=== PATIENT | female | born 1985 | race African-American/Black ===

== ENCOUNTER 2016-10-02 20:56 | Emergency (ER) | payer OTHER ==
[~2016-10-02] VITALS: Ht 165.1 cm; Wt 124.3 kg
[~2016-10-02 20:56] MED LIST: LABE100T3 PO
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
[2016-10-02] MEDS ORDERED: ORPHENADRINE CITRATE 60 MG/2 ML VIAL. IM ONE (21:45)
[2016-10-02 22:07] LABS: BILIRUBIN,URINE NEGATIVE (NEG); GLUCOSE,URINE NEGATIVE (NEG); NEG OBC UR NEG; NITRITE,URINE NEGATIVE (NEG); PH,URINE 6.5; POS OBC UR POS; PROTEIN,URINE NEGATIVE (NEG-TRACE)
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
[2016-10-02] MEDS ORDERED: CYCL10TA2 PO (22:27)
[2016-10-02] MEDS ORDERED: IBUP-1007 PO (22:27)
[2016-10-02 22:45] VITALS: BP 121/68
[2016-10-02] MEDS ORDERED: IBUPROFEN 600 MG TABLET. PO ONE (22:45)
[2016-10-02] MEDS ORDERED: CYCLOBENZAPRINE 10 MG TABLET. PO ONE (22:45)
== END 2016-10-02 22:49 | disposition home or self-care (01) ==
LOC: ER 20:56
DX: S01.81XA Laceration without foreign body of other part of head, initial encounter (principal); S09.90XA Unspecified injury of head, initial encounter; M54.2 Cervicalgia; Z91.041 Radiographic dye allergy status; Z88.5 Allergy status to narcotic agent; V49.50XA Passenger injured in collision with unspecified motor vehicles in traffic accident, initial encounter; Y93.89 Activity, other specified; Y92.410 Unspecified street and highway as the place of occurrence of the external cause; Y99.8 Other external cause status
CPT/HCPCS: 70450; 72125; 81003; 81025; 99285-25

== ENCOUNTER 2016-11-04 15:59 | Emergency (ER) | payer OTHER ==
[~2016-11-04] VITALS: Ht 165.1 cm; Wt 93.9 kg
[~2016-11-04 15:59] MED LIST changes: +CYCL10TA2 PO; +IBUP-1007 PO
[2016-11-04 16:03] VITALS: BP 124/82
[2016-11-04] MEDS ORDERED: TRAM-29 PO (16:31)
[2016-11-04] MEDS ORDERED: PENI500T PO (16:31)
--- NOTE | 2016-11-04 16:31 | PHYS DOC ---
Past Medical History Past Medical History: Hypertension Past Surgical History: Tubal ligation Additional Information: Nonsmoker Alcohol Use: None Drug Use: None Adult General Chief Complaint Chief Complaint: Toothache HPI HPI Patient is a 31 year old female who presents with left mandibular dental pain starting last night. She has a tooth that was previously broken but broke further last night. She denies any fevers. There is mild swelling. She does not have a dentist but sees Dr. Robert Stanley for primary care. Review of Systems Review of Systems Constitutional: Denies fever or chills. [] Eyes: Denies change in visual acuity, redness, or eye pain. [] HENT: Denies ear pain, nasal congestion or sore throat. Reports dental pain. Integument: Denies rash or skin lesions. [] Neurologic: Denies headache, focal weakness or sensory changes. [] Allergies Allergies Allergies Coded Allergies Type Severity Reaction Last Updated Verified Iodinated Contrast Media - IV Dye Allergy Intermediate 12/07/15 Yes oxycodone Allergy Intermediate 12/07/15 Yes Physical Exam Physical Exam Constitutional: Well developed, well nourished, no acute distress, non-toxic appearance. [] HENT: Normocephalic, atraumatic, bilateral external ears normal, oropharynx moist, no oral exudates, nose normal. Bilateral TMs without erythema or bulging. There is no posterior pharyngeal erythema or tonsillar edema. Tooth # 20 is carious, broken, and tender with minimal gingival edema surrounding. There is no dental abscess. Eyes: PERRLA, EOMI, conjunctiva normal, no discharge. [] Neck: Normal range of motion, no tenderness, supple, no stridor. [] Skin: Warm, dry, no erythema, no rash. [] Neurologic: Alert and oriented X 3, normal motor function, normal sensory function, no focal deficits noted. [] Psychologic: Affect normal, judgement normal, mood normal. [] Current Patient Data Vital Signs Vital Signs Date Time Temp Pulse Resp B/P Pulse Ox O2 Delivery O2 Flow Rate FiO2 11/04/16 16:03 98.1 73 16 99 Room Air 98.1 EKG EKG [] Radiology/Procedures Radiology/Procedures [] Course & Med Decision Making Course & Med Decision Making Pertinent Labs and Imaging studies reviewed. (See chart for details) [] Dragon Disclaimer Dragon Disclaimer This electronic medical record was generated, in whole or in part, using a voice recognition dictation system. Departure Departure Impression: Primary Impression: Dentalgia Disposition: 01 HOME, SELF-CARE Condition: STABLE Referrals: ROBERT STANLEY (PCP) Patient Instructions: Dental Pain, [id number] Additional Instructions: Please complete all the prescribed antibiotics, even if your tooth is feeling better. Please take the prescribed pain medication as directed. Do not drive or operate heavy machinery while taking pain medication. Please follow-up with the dentist of your choice as soon as possible to have your tooth pulled. Return to emergency department if you have any new or concerning symptoms. Scripts Tramadol Hcl (Ultram)50 Mg [id number] Mg PO Q6H PRN PAIN #20 TAB Prov:NURYS OROZCO 11/04/16 Penicillin V Potassium 500 Mg Tablet1 Tab PO TID #30 TAB Prov:NURYS OROZCO 11/04/16 NURYS OROZCO Nov 04, 2016 16:31
== END 2016-11-04 16:38 | disposition home or self-care (01) ==
LOC: ER 15:59
DX: K02.9 Dental caries, unspecified (principal); I10 Essential (primary) hypertension; Z88.5 Allergy status to narcotic agent; Z91.041 Radiographic dye allergy status
CPT/HCPCS: 99283

== ENCOUNTER 2017-05-25 18:45 | Emergency (ER) | payer OTHER ==
[~2017-05-25] VITALS: Ht 165.1 cm; Wt 110.2 kg
[~2017-05-25 18:45] MED LIST changes: +PENI500T PO; +TRAM-48 PO
[2017-05-25 18:55] VITALS: BP 131/77
--- NOTE | 2017-05-25 19:03 | PHYS DOC ---
Past Medical History Past Medical History: Hypertension Past Surgical History: Tubal ligation Alcohol Use: None Drug Use: None Adult General Chief Complaint Chief Complaint: DENTAL PROBLEM HPI HPI Patient is a 31 year old female presents to the emergency department with complaints of left lower dental pain. She had a tooth extracted 3 days ago. She was prescribed hydrocodone but she is afraid to take it because she has good work. She reports no fever no difficulty with swallowing or phonation. Review of Systems Review of Systems Constitutional: Denies fever or chills [] Eyes: Denies change in visual acuity, redness, or eye pain [] HENT: Dental pain Respiratory: Denies cough or shortness of breath [] Cardiovascular: No additional information not addressed in HPI [] GI: Denies abdominal pain, nausea, vomiting, bloody stools or diarrhea [] : Denies dysuria or hematuria [] Musculoskeletal: Denies back pain or joint pain [] Integument: Denies rash or skin lesions [] Neurologic: Denies headache, focal weakness or sensory changes [] Endocrine: Denies polyuria or polydipsia [] Allergies Allergies Allergies Coded Allergies Type Severity Reaction Last Updated Verified Iodinated Contrast Media - IV Dye Allergy Intermediate 12/07/15 Yes oxycodone Allergy Intermediate 12/07/15 Yes Physical Exam Physical Exam Constitutional: Well developed, well nourished, no acute distress, non-toxic appearance. [] HENT: Normocephalic, atraumatic, bilateral external ears normal, oropharynx moist, no oral exudates, nose normal. Gingiva with evidence of recent extraction at #21, no swelling, no erythema. Facial swelling. [] Eyes: PERRLA, EOMI, conjunctiva normal, no discharge. [] Neck: Normal range of motion, no tenderness, supple, no stridor. [] Cardiovascular:Heart rate regular rhythm, no murmur [] Lungs & Thorax: Bilateral breath sounds clear to auscultation [] Abdomen: Bowel sounds normal, soft, no tenderness, no masses, no pulsatile masses. [] Skin: Warm, dry, no erythema, no rash. [] Neurologic: Alert and oriented X 3, normal motor function, normal sensory function, no focal deficits noted. [] Psychologic: Affect normal, judgement normal, mood normal. [] EKG EKG [] Radiology/Procedures Radiology/Procedures [] Course & Med Decision Making Course & Med Decision Making Pertinent Labs and Imaging studies reviewed. (See chart for details) []She'll be provided with a work note so that she may comfortably use her medications as directed by the dentist. Cecilia Disclaimer Aleksandraon Disclaimer This electronic medical record was generated, in whole or in part, using a voice recognition dictation system. Departure Departure Impression: Primary Impression: Odontalgia Disposition: HOME, SELF-CARE Condition: STABLE Referrals: MACRINA STANLEY (PCP) Patient Instructions: Dental Pain Additional Instructions: Continue medications as directed by the dentist. Please follow-up with your dentist tomorrow. ILEANA LÓPEZ GROUP THERAPIST May 25, 2017 19:03
== END 2017-05-25 19:10 | disposition home or self-care (01) ==
LOC: ER 18:45
DX: K08.89 Other specified disorders of teeth and supporting structures (principal); I10 Essential (primary) hypertension; Z88.5 Allergy status to narcotic agent; Z91.041 Radiographic dye allergy status
CPT/HCPCS: 99281

== ENCOUNTER 2017-10-08 14:18 | Emergency (ER) | payer OTHER | END 2017-10-08 15:16 | disposition home or self-care (01) | LOC: ER 14:18 | DX: M43.6 Torticollis (principal); I10 Essential (primary) hypertension; Z88.5 Allergy status to narcotic agent; Z91.041 Radiographic dye allergy status | CPT/HCPCS: 99283 ==

== ENCOUNTER 2018-11-30 20:43 | Emergency (ER) | payer SELFPAY ==
[~2018-11-30] VITALS: Ht 165.1 cm; Wt 108.9 kg
[~2018-11-30 20:43] MED LIST changes: -LABE100T3 PO; +LABE100T5 PO; +METH4TAB2 PO; +NAPR500T8 PO
[2018-11-30 23:25] VITALS: BP 125/72
[2018-12-01] MEDS ORDERED: IBUPROFEN 400 MG TABLET. PO ONE (00:30)
[2018-12-01] MEDS ORDERED: CYCLOBENZAPRINE 10 MG TABLET. PO ONE (00:30)
[2018-12-01] MEDS ORDERED: CYCL5TAB PO (00:56)
--- NOTE | 2018-12-01 01:16 | RAD ---
INDICATION: Left leg pain COMPARISON: None. TECHNIQUE: Grayscale, color and doppler ultrasound images were obtained of the left lower extremity venous vasculature. LEFT: No thrombus identified in the common femoral vein, femoral vein, popliteal vein or visualized calf veins. IMPRESSION: 1. No thrombus identified in deep venous system of the left lower extremity. 2. Within the left anterior aspect of the foot subcutaneous soft tissues there is a hypoechoic oval-shaped masslike structure identified measuring approximately 18 x 5 mm which appears partially compressible. This is of unknown etiology with a small soft tissue mass or lymph node within the differential. If more complete characterization is desired nonemergent MRI could further evaluate. This has a more focal appearance than would be typically seen with causes such as a thrombus within a superficial dilated vein. Electronically signed by: Edwin Patton MD (12/01/2018 1:13 AM) [facility]
--- NOTE | 2018-12-01 05:18 | PHYS DOC ---
Past Medical History Past Medical History: Hypertension Past Surgical History: Tubal ligation Alcohol Use: Occasionally Drug Use: None Adult General Chief Complaint Chief Complaint: LOWER EXT PAIN HPI HPI Patient is a 33 year old f p./w left leg cramp, has had this on and off for a month mostly in the hamstring area she says that might have started from lifting heavy boxes at work. No back pain no bowel or bladder incontinence tonight the pain was worse it is cramping every time she tries to move her hamstring thigh area so she came to the emergency room for evaluation Review of Systems Review of Systems Constitutional: Denies fever or chills [] Eyes: Denies change in visual acuity, redness, or eye pain [] HENT: Denies nasal congestion or sore throat [] Respiratory: Denies cough or shortness of breath [] Cardiovascular: No additional information not addressed in HPI [] GI: Denies abdominal pain, nausea, vomiting, bloody stools or diarrhea [] : Denies dysuria or hematuria [] Musculoskeletal: Denies back pain or joint pain [] Integument: Denies rash or skin lesions [] Neurologic: Denies headache, focal weakness or sensory changes [] Endocrine: Denies polyuria or polydipsia [] All other systems were reviewed and found to be within normal limits, except as documented in this note. Current Medications Current Medications Current Medications Medications (Trade) Dose Ordered Sig/Yemi Start Time Stop Time Status Last Admin Dose Admin Cyclobenzaprine HCl (Flexeril) 10 mg 1X ONCE 12/01/18 00:30 12/01/18 00:31 DC 12/01/18 01:28 10 MG Ibuprofen (Motrin) 400 mg 1X ONCE 12/01/18 00:30 12/01/18 00:31 DC 12/01/18 01:27 400 MG Allergies Allergies Allergies Coded Allergies Type Severity Reaction Last Updated Verified Iodinated Contrast- Oral and IV Dye Allergy Intermediate 12/07/15 Yes oxycodone Allergy Intermediate 12/07/15 Yes Physical Exam Physical Exam Constitutional: Well developed, well nourished, no acute distress, non-toxic appearance. [] HENT: Normocephalic, atraumatic, bilateral external ears normal, oropharynx moist, no oral exudates, nose normal. [] Eyes: PERRLA, EOMI, conjunctiva normal, no discharge. [] Neck: Normal range of motion, no tenderness, supple, no stridor. [] Pulmonary: Normal respiratory effort no increased work of breathing no obvious chest wall trauma Abdomen: Bowel sounds normal, soft, no tenderness, no masses, no pulsatile masses. [] Skin: Warm, dry, no erythema, no rash. [] Back: No tenderness, no CVA tenderness. [] Extremities: Pedal pulses intact no signs of erythema or induration. No obvious palpable mass was identified on clinical examination mild to moderate tenderness in the popliteal region was noted there is also tenderness around the left hamstring muscle no masses identified. Neurologic: Alert and oriented X 3, normal motor function, normal sensory function, no focal deficits noted. [] Psychologic: Affect normal, judgement normal, mood normal. [] Current Patient Data Vital Signs Vital Signs Date Time Temp Pulse Resp B/P (MAP) Pulse Ox O2 Delivery O2 Flow Rate FiO2 11/30/18 23:25 97.7 73 16 125/72 (89) 98 Room Air 97.7 EKG EKG [] Radiology/Procedures Radiology/Procedures [] Impressions: No thrombus identified in the common femoral vein, femoral vein, popliteal vein or visualized calf veins. IMPRESSION: 1. No thrombus identified in deep venous system of the left lower extremity. 2. Within the left anterior aspect of the foot subcutaneous soft tissues there is a hypoechoic oval-shaped masslike structure identified measuring approximately 18 x 5 mm which appears partially compressible. This is of unknown etiology with a small soft tissue mass or lymph node within the differential. If more complete characterization is desired nonemergent MRI could further evaluate. This has a more focal appearance than would be typically seen with causes such as a thrombus within a superficial dilated vein. Electronically signed by: Eleni Patton MD (12/01/2018 1:13 AM) [facility] DICTATED and SIGNED BY: ELENI PATTON MD DATE: 12/01/18 0113 Course & Med Decision Making Course & Med Decision Making Pertinent Labs and Imaging studies reviewed. (See chart for details) []Normal ultrasound finding and checked the foot there are no signs of cellulitis. Negative for DVT I suspect given the clinical history is mostly just muscle cramping/spasm in the hamstring area recommended muscle relaxant follow-up as needed use ice and rest gradual return to activity Dragon Disclaimer Dragon Disclaimer This electronic medical record was generated, in whole or in part, using a voice recognition dictation system. Departure Departure Impression: Primary Impression: Muscle cramp Disposition: HOME, SELF-CARE Condition: STABLE Patient Instructions: Muscle Cramps Scripts Cyclobenzaprine Hcl (CYCLOBENZAPRINE HCL) 5 Mg Tablet 5 MG PO PRN TID PRN for MUSCLE SPASMS, #15 TAB Prov: BURAK ARREDONDO MD 12/01/18 BURAK ARREDONDO MD Dec 01, 2018 05:18
== END 2018-12-01 01:28 | disposition home or self-care (01) ==
LOC: ER 20:43
DX: R25.2 Cramp and spasm (principal); M79.605 Pain in left leg; I10 Essential (primary) hypertension; Z88.5 Allergy status to narcotic agent; Z91.041 Radiographic dye allergy status
CPT/HCPCS: 93971; 99284-25

== ENCOUNTER 2019-08-27 18:30 | Emergency (ER) | payer MEDICAID ==
[~2019-08-27] VITALS: Ht 165.1 cm; Wt 104.3 kg
[~2019-08-27 18:30] MED LIST changes: +CYCL5TAB PO
[2019-08-27] MEDS ORDERED: ONDANSETRON PF 4 MG/2 ML VIAL. IV ONE (19:00)
--- NOTE | 2019-08-27 19:01 | PHYS DOC ---
Past Medical History Past Medical History: Hypertension Past Surgical History: Tubal ligation Alcohol Use: Occasionally Drug Use: None Adult General Chief Complaint Chief Complaint: SYNCOPE HPI HPI 34-year-old female underlying history of hypertension presents to the emergency department with complaints of a headache. Patient states the headache started around 7 AM. She states she did not take any medications for this this morning. She describes a headache as pounding. She states she did have some muscle tension in her shoulders as well. Describes nausea, vomiting. Denies any fever. She states nothing makes her pain worse, nothing makes her pain better. She also describes a syncopal episode as she was getting off the toilet. Unknown exactly downtime. She denies any bowel or bladder dysfunction. Review of Systems Review of Systems Constitutional: Denies fever or chills [] Eyes: Denies change in visual acuity, redness, or eye pain [] HENT: Denies nasal congestion or sore throat [] Respiratory: Denies cough or shortness of breath [] Cardiovascular: No additional information not addressed in HPI [] GI: Denies abdominal pain,+ nausea, vomiting, no bloody stools or diarrhea [] : Denies dysuria or hematuria [] Musculoskeletal: Denies back pain or joint pain [] Neurologic: + headache, no focal weakness or sensory changes [] All other systems were reviewed and found to be within normal limits, except as documented in this note. Current Medications Current Medications Current Medications Medications (Trade) Dose Ordered Sig/Yemi Start Time Stop Time Status Last Admin Dose Admin Diphenhydramine HCl (Benadryl) 50 mg 1X ONCE 08/27/19 20:15 08/27/19 20:16 DC 08/27/19 20:17 50 MG Metoclopramide HCl (Reglan Vial) 10 mg 1X ONCE 08/27/19 20:15 08/27/19 20:16 DC 08/27/19 20:17 10 MG Ondansetron HCl (Zofran) 4 mg 1X ONCE 08/27/19 19:00 08/27/19 19:01 DC 08/27/19 19:27 4 MG Allergies Allergies Allergies Coded Allergies Type Severity Reaction Last Updated Verified Iodinated Contrast- Oral and IV Dye Allergy Intermediate 12/07/15 Yes oxycodone Allergy Intermediate 12/07/15 Yes Physical Exam Physical Exam Constitutional: Well developed, well nourished, pain 2/2 headache, non-toxic appearance. [] HENT: Normocephalic, atraumatic, bilateral external ears normal, oropharynx moist, no oral exudates, nose normal. [] Eyes: PERRLA, EOMI, conjunctiva normal, no discharge. [] Neck: Normal range of motion, no tenderness, supple, no stridor. [] Cardiovascular:Heart rate regular rhythm, no murmur [] Lungs & Thorax: Bilateral breath sounds clear to auscultation [] Abdomen: Bowel sounds normal, soft, no tenderness, no masses, no pulsatile masses. [] Skin: Warm, dry, no erythema, no rash. [] Back: No tenderness, no CVA tenderness. [] Extremities: No tenderness, no edema. [] Neurologic: Alert and oriented X 3,no focal deficits noted. [] Psychologic: Affect normal, judgement normal, mood normal. [] Current Patient Data Vital Signs Vital Signs Date Time Temp Pulse Resp B/P (MAP) Pulse Ox O2 Delivery O2 Flow Rate FiO2 08/27/19 19:06 98.6 58 14 161/100 (120) 100 Room Air 98.6 Lab Values Laboratory Tests Test 08/27/19 18:57 08/27/19 19:29 POC Urine HCG, Qualitative Hcg negative (Negative) White Blood Count 9.7 x10^3/uL (4.0-11.0) Red Blood Count 4.41 x10^6/uL (3.50-5.40) Hemoglobin 13.6 g/dL (12.0-15.5) Hematocrit 41.3 % (36.0-47.0) Mean Corpuscular Volume 94 fL (79-100) Mean Corpuscular Hemoglobin 31 pg (25-35) Mean Corpuscular Hemoglobin Concent 33 g/dL (31-37) Red Cell Distribution Width 14.3 % (11.5-14.5) Platelet Count 213 x10^3/uL (140-400) Neutrophils (%) (Auto) 61 % (31-73) Lymphocytes (%) (Auto) 31 % (24-48) Monocytes (%) (Auto) 6 % (0-9) Eosinophils (%) (Auto) 2 % (0-3) Basophils (%) (Auto) 1 % (0-3) Neutrophils # (Auto) 6.0 x10^3/uL (1.8-7.7) Lymphocytes # (Auto) 3.0 x10^3/uL (1.0-4.8) Monocytes # (Auto) 0.6 x10^3/uL (0.0-1.1) Eosinophils # (Auto) 0.1 x10^3/uL (0.0-0.7) Basophils # (Auto) 0.1 x10^3/uL (0.0-0.2) Sodium Level 143 mmol/L (136-145) Potassium Level 3.5 mmol/L (3.5-5.1) Chloride Level 105 mmol/L (98-107) Carbon Dioxide Level 29 mmol/L (21-32) Anion Gap 9 (6-14) Blood Urea Nitrogen 7 mg/dL (7-20) Creatinine 0.8 mg/dL (0.6-1.0) Estimated GFR (Cockcroft-Gault) 99.4 BUN/Creatinine Ratio 9 (6-20) Glucose Level 99 mg/dL (70-99) Calcium Level 8.9 mg/dL (8.5-10.1) Magnesium Level 1.9 mg/dL (1.8-2.4) Total Bilirubin 0.3 mg/dL (0.2-1.0) Aspartate Amino Transferase (AST) 12 U/L (15-37) L Alanine Aminotransferase (ALT) 18 U/L (14-59) Alkaline Phosphatase 75 U/L (46-116) Troponin I Quantitative < 0.017 ng/mL (0.000-0.055) Total Protein 7.6 g/dL (6.4-8.2) Albumin 3.9 g/dL (3.4-5.0) Albumin/Globulin Ratio 1.1 (1.0-1.7) Laboratory Tests 08/27/19 19:29 Laboratory Tests 08/27/19 19:29 EKG EKG [] Radiology/Procedures Radiology/Procedures [facility] [address] [place] [address] IMAGING REPORT Signed PATIENT: MARICRUZ RÍOS DACCOUNT: [id number] : 1985 LOCATION: ER AGE: 34 SEX: F EXAM STATUS: PRE ER ORD. PHYSICIAN: LEOLA RANDLE MD REASON: syncope, headache PROCEDURE: CT HEAD WO CONTRAST Examination: CT HEAD WO CONTRAST History: Syncope, headache Comparison/Correlation: 10/02/2016 CT head and cervical spine without contrast Findings: Axial images of the head were obtained without contrast. Ventricles are normal size. No intracranial hemorrhage, midline shift, or mass effect. Bony structures are unremarkable. Patchy opacification of paranasal sinuses noted. Impression: No suspicious process. PQRS Compliance Statement: One or more of the following individualized dose reduction techniques were utilized for this examination: 1. Automated exposure control 2. Adjustment of the mA and/or kV according to patient size 3. Use of iterative reconstruction technique Electronically signed by: Eliud Gabriel MD (08/27/2019 8:03 PM) [facility] DICTATED and SIGNED BY: ELIUD GABRIEL MD DATE: 08/27/192002 [] Course & Med Decision Making Course & Med Decision Making Pertinent Labs and Imaging studies reviewed. (See chart for details) []34-year-old female underlying history of hypertension presents to the emergency department with complaints of a headache. Patient states the headache started around 7 AM. She states she did not take any medications for this this morning. She describes a headache as pounding. She states she did have some muscle tension in her shoulders as well. Describes nausea, vomiting. Denies any fever. She states nothing makes her pain worse, nothing makes her pain better. She also describes a syncopal episode as she was getting off the toilet. Unknown exactly downtime. She denies any bowel or bladder dysfunction. Labs reviewed CT head negative Patient provided with IV reglan, benadryl and toradol Reassessment of patient 2054 with headache improved Plan dc home with follow up as outpatient with PCP Return precautions provided Cecilia Disclaimer Dragon Disclaimer This electronic medical record was generated, in whole or in part, using a voice recognition dictation system. Departure Departure Impression: Primary Impression: Headache Additional Impression: Vasovagal episode Disposition: HOME, SELF-CARE Condition: IMPROVED Referrals: MACRINA STANLEY (PCP) Patient Instructions: General Headache Without Cause, [id number], Syncope, [id number] Additional Instructions: Recommend follow up with PCP 3 - 5 days Return to the ER with worsening symptoms, intractable pain, fever, altered mental status Tylenol/Motrin as needed for pain CT head negative without acute process Labs reviewed and negative Problem Qualifiers Primary Impression: Headache Headache type: unspecified Headache chronicity pattern: acute headache Intractability: intractable Qualified Codes: R51 - Headache LEOLA RANDLE MD Aug 27, 2019 19:01
[2019-08-27 19:36] LABS: BASO # 0.1 x10^3/uL (0.0-0.2); BASO % 1 % (0-3); EOS # 0.1 x10^3/uL (0.0-0.7); EOS % 2 % (0-3); HEMATOCRIT 41.3 % (36.0-47.0); HEMOGLOBIN 13.6 g/dL (12.0-15.5); LYMPH % 31 % (24-48); MEAN CORPUSCULAR HEMOGLOBIN 31 pg (25-35); MEAN CORPUSCULAR HGB CONC 33 g/dL (31-37); MEAN CORPUSCULAR VOLUME 94 fL (79-100); MONO # 0.6 x10^3/uL (0.0-1.1); MONO % 6 % (0-9); NEUT % 61 % (31-73); PLATELET COUNT 213 x10^3/uL (140-400); RED BLOOD COUNT 4.41 x10^6/uL (3.50-5.40); RED CELL DISTRIBUTION WIDTH 14.3 % (11.5-14.5); WHITE BLOOD COUNT 9.7 x10^3/uL (4.0-11.0)
[2019-08-27 19:54] LABS: CALCIUM 8.9 mg/dL (8.5-10.1); CREATININE 0.8 mg/dL (0.6-1.0); GFR 99.4; POTASSIUM 3.5 mmol/L (3.5-5.1)
[2019-08-27 19:58] LABS: ALBUMIN 3.9 g/dL (3.4-5.0); ALBUMIN/GLOBULIN RATIO 1.1 (1.0-1.7); MAGNESIUM 1.9 mg/dL (1.8-2.4); TOTAL BILIRUBIN 0.3 mg/dL (0.2-1.0); TOTAL PROTEIN 7.6 g/dL (6.4-8.2)
--- NOTE | 2019-08-27 20:06 | RAD ---
Examination: CT HEAD WO CONTRAST History: Syncope, headache Comparison/Correlation: 10/02/2016 CT head and cervical spine without contrast Findings: Axial images of the head were obtained without contrast. Ventricles are normal size. No intracranial hemorrhage, midline shift, or mass effect. Bony structures are unremarkable. Patchy opacification of paranasal sinuses noted. Impression: No suspicious process. PQRS Compliance Statement: One or more of the following individualized dose reduction techniques were utilized for this examination: 1. Automated exposure control 2. Adjustment of the mA and/or kV according to patient size 3. Use of iterative reconstruction technique Electronically signed by: Eliud Chi MD (08/27/2019 8:03 PM) [facility]
[2019-08-27] MEDS ORDERED: METOCLOPRAMIDE HCL 10 MG/2 ML VIAL. IVP ONE (20:15)
[2019-08-27] MEDS ORDERED: diphenhydrAMINE 50 MG/ML VIAL IVP ONE (20:15)
[2019-08-27 21:00] VITALS: BP 98/64
--- NOTE | 2019-08-27 22:11 | RAD ---
Study: PORTABLE CHEST 1V Indication: Syncope. Comparison: 12/05/2015 Findings: Unremarkable cardiomediastinal silhouette and tom. No pneumothorax, lobar infiltrate or pleural effusion. Impression: Unremarkable appearance of the chest. Electronically signed by: TSEVIE ELMORE MD (08/27/2019 10:09 PM) [facility]
--- NOTE | 2019-08-28 10:11 | EKG ---
[facility] [address] [place] [address] Test Date: 2019-08-27 Test Time: 19:05:27 Pat Name: MARICRUZ RÍOS Department: Room: Gender: [employer]: : 1985 Requested By: LEOLA RANDLE Order Number: [id number] Reading MD: Measurements Intervals Delia Rate: 53 P: 54 LA: 146 QRS: 3 QRSD: 88 T: -1 QT: 458 QTc: 436 Interpretive Statements SINUS RHYTHM NON SPECIFIC T ABNORMALITY BORDERLINE ECG No previous ECG available for comparison
== END 2019-08-27 22:09 | disposition home or self-care (01) ==
LOC: ER 18:30
DX: R51 Headache (principal); R55 Syncope and collapse; I10 Essential (primary) hypertension; Z98.51 Tubal ligation status; Z88.5 Allergy status to narcotic agent; Z91.041 Radiographic dye allergy status
CPT/HCPCS: 36415; 70450; 71045; 80053; 81025; 83735; 84484; 85025; 93005; 96374; 96375; 99285; J1200; J2405; J2765

== ENCOUNTER 2020-07-29 21:17 | Emergency (ER) | payer MEDICAID ==
[~2020-07-29] VITALS: Ht 165.1 cm; Wt 104.5 kg
[2020-07-29] MEDS ORDERED: IV NORMAL SALINE 1000ML BAG 1,000 ML IV ONE (21:30)
--- NOTE | 2020-07-29 21:44 | PHYS DOC ---
Past Medical History Past Medical History: Hypertension Past Surgical History: Tubal ligation Smoking Status: Current Every Day Smoker Alcohol Use: Occasionally Drug Use: None General Adult EDM: Chief Complaint: HEADACHE HPI: HPI: History obtained from patient. Patient is a 35-year-old female with a history of migraines who presents with complaint headache. States the headache began gradually 8 hours prior to arrival. States it worsened 2 hours ago. She notes is located the front of her head and is aching in nature. Denies any physical activity or exertion when the headache began. Does note mild photophobia. Notes one episode of vomiting. Denies any neck pain or fever. Denies any acute vision or hearing changes. States this feels similar to previous headaches that she has had in the past. She notes that she was prescribed headache medication a month ago by her primary care physician. States she ran out of the medication 2 weeks ago. Is never seen a neurologist. States she has had advanced head imaging that was negative. She does not know the name of the medication she was prescribed. Patient denies acute onset of headache reaching maximal intensity in under one hour. This is neither the worst headache that Patient has ever experienced, nor was the onset timed with exertional activity or trauma. Patient has not experienced any fever, unusual neck pain or stiffness, syncope, or near syncope. Patient denies numbness, tingling, or weakness of the extremities. Patient also denies personal history of intracranial hemorrhage (including SAH), aneurysm, or AV malformation. Review of Systems: Review of Systems: Constitutional: Denies fever or chills. [] Eyes: Denies change in visual acuity. [] HENT: Denies nasal congestion or sore throat. [] Respiratory: Denies cough or shortness of breath. [] Cardiovascular: Denies chest pain or edema. [] GI: Denies abdominal pain, nausea, vomiting, bloody stools or diarrhea. [] : Denies dysuria. [] Musculoskeletal: Denies back pain or joint pain. [] Integument: Denies rash. [] Neurologic: Positive for headache Endocrine: Denies polyuria or polydipsia. [] Lymphatic: Denies swollen glands. [] Psychiatric: Denies depression or anxiety. [] Heart Score: Risk Factors: Risk Factors: DM, Current or recent (<one month) smoker, HTN, HLP, family history of CAD, obesity. Risk Scores: Score 0 - 3: 2.5% MACE over next 6 weeks - Discharge Home Score 4 - 6: 20.3% MACE over next 6 weeks - Admit for Clinical Observation Score 7 - 10: 72.7% MACE over next 6 weeks - Early Invasive Strategies Current Medications: Current Medications Medications (Trade) Dose Ordered Sig/Yemi Start Time Stop Time Status Last Admin Dose Admin Diphenhydramine HCl (Benadryl) 50 mg 1X ONCE 07/29/20 21:45 07/29/20 21:46 Metoclopramide HCl (Reglan Vial) 10 mg 1X ONCE 07/29/20 21:45 07/29/20 21:46 Sodium Chloride 1,000 ml @ 1,000 mls/hr 1X ONCE 07/29/20 21:30 07/29/20 22:29 Allergies: Allergies: Allergies Coded Allergies Type Severity Reaction Last Updated Verified Iodinated Contrast Media Allergy Intermediate 12/07/15 Yes oxycodone Allergy Intermediate 12/07/15 Yes Physical Exam: PE: Constitutional: Well developed, well nourished, no acute distress, non-toxic appearance. [] HENT: Normocephalic, atraumatic, bilateral external ears normal, oropharynx moist, no oral exudates, nose normal. [] Eyes: PERRLA, EOMI, conjunctiva normal, no discharge. [] Neck: Normal range of motion, no tenderness, supple, no stridor. [] Cardiovascular:Heart rate regular rhythm, no murmur [] Lungs & Thorax: Bilateral breath sounds clear to auscultation [] Abdomen: , soft, no tenderness, no masses, no pulsatile masses. [] Skin: Warm, dry, no erythema, no rash. [] Back: No tenderness, no CVA tenderness. [] Extremities: No tenderness, no cyanosis, no clubbing, ROM intact, no edema. [] Neurologic: Alert with intact cognitive function. No aphasia, dysarthria, or neglect. GCS 15. Pupils 3 mm briskly reactive b/l. No APD present. Cranial nerves 2-12 grossly intact; no facial asymmetry present, tongue midline, shoulder shrugging strength intact. Strength 5/5 and symmetric throughout. Light touch sensation intact throughout. Cerebellar testing appropriate without evidence of dysdiadochokinesia. DTR's 2+ in all 4 extremities. Negative pronator drift bilaterally. Gait normal Psychologic: Affect normal, judgement normal, mood normal. [] Current Patient Data: Labs: Laboratory Tests Test 07/29/20 21:30 07/29/20 21:31 POC Urine HCG, Qualitative Hcg negative (Negative) Hcg negative (Negative) Vital Signs: Vital Signs Date Time Temp Pulse Resp B/P (MAP) Pulse Ox O2 Delivery O2 Flow Rate FiO2 07/29/20 21:40 97.8 77 20 166/95 (118) 100 Room Air 97.8 EKG: EKG: [] Radiology/Procedures: Radiology/Procedures: [] Course & Med Decision Making: Course & Med Decision Making Pertinent Labs and Imaging studies reviewed. (See chart for details) [] Patient is a 35-year-old female who presents with chief complaint of acute on chronic migraine headache. Initial vital signs unremarkable. negative. Neurologic exam without focal deficit. No nuchal rigidity noted. CT imaging will be deferred as she has had previous imaging a year ago that was otherwise normal. Migraine cocktail was administered and the patient reported complete resolution of her headache. She is requesting discharge home. Overall I do feel this is reasonable. She will be given a neurologist for follow-up for potential chronic migraine medications. Return precautions discussed and understood. Repeat neurologic exam remains normal. Stable for discharge home. Cecilia Disclaimer: Cecilia Disclaimer: This electronic medical record was generated, in whole or in part, using a voice recognition dictation system. Departure Departure Impression: Primary Impression: Headache Qualified Codes: R51.9 - Headache, unspecified Disposition: 01 DC HOME SELF CARE/HOMELESS Condition: STABLE Referrals: OBINNA CABRALES MD (PCP) KAMRYN JAMES MD Patient Instructions: Migraine Headache EAGLE COSTA DO Jul 29, 2020 21:44
[2020-07-29] MEDS ORDERED: diphenhydrAMINE 50 MG/ML VIAL IVP ONE (21:45)
[2020-07-29] MEDS ORDERED: METOCLOPRAMIDE HCL 10 MG/2 ML VIAL. IVP ONE (21:45)
[2020-07-29] MEDS ORDERED: KETOROLAC 15 MG/ML VIAL. IVP ONE (22:30)
[2020-07-29 23:51] VITALS: BP 123/74
== END 2020-07-29 23:54 | disposition home or self-care (01) ==
LOC: ER 21:17
DX: G43.909 Migraine, unspecified, not intractable, without status migrainosus (principal); I10 Essential (primary) hypertension; F17.200 Nicotine dependence, unspecified, uncomplicated; Z91.041 Radiographic dye allergy status; Z88.5 Allergy status to narcotic agent
CPT/HCPCS: 81025; 96361; 96374; 96375; 99285; J1200; J1885; J2765; J7030